=== PATIENT | female | born 1990 | race American Indian/Alaskan Native ===

== ENCOUNTER → 2020-03-28 | Emergency (ER) | payer SELFPAY ==
[2020-03-28 11:33] VITALS: BP 124/83
--- NOTE | 2020-03-28 11:37 | Event Note ---
ED Screening Note Date of service: 03/28/20 Time: 11:36 ED Screening Note: 21-year-old female who presents the ED complaining of vaginal pain status post using vaginal suppository cream which she got from [facility] x2 days Denies dysuria, vaginal discharge or abdominal pelvic pain This initial assessment/diagnostic orders/clinical plan/treatment(s) is/are subject to change based on patients health status, clinical progression and re- assessment by fellow clinical providers in the ED. Further treatment and workup at subsequent clinical providers discretion. Patient/guardian urged not to elope from the ED as their condition may be serious if not clinically assessed and managed. Initial orders include: pelvic exam set up
== END ==
LOC: ED 10:56
DX: R10.2 Pelvic and perineal pain (principal); Z53.21 Procedure and treatment not carried out due to patient leaving prior to being seen by health care provider